=== PATIENT | male | born 1980 | race Two or more races ===

== ENCOUNTER 2024-07-07 19:22 | Emergency (ER) | payer SELFPAY ==
[2024-07-07 19:23] VITALS: BMI 39.4
--- NOTE | 2024-07-07 20:51 | PD.EDURI ---
Upper Respiratory Inf. RME/HPI General Chief Complaint: Flu Like Symptoms Stated Complaint: SORE THROAT Time Seen by Provider: 07/07/24 20:49 Arrival date/time: 07/07/24 19:22 RME / HPI RME / HPI Narrative: 44-year-old male patient came in for evaluation regarding flulike symptoms since yesterday, associated with nasal congestion sore throat, nonproductive cough body aches, headache, low-grade fever. Denies any abdominal pain denies any other complaints. No medications taken prior travel. Related Data Previous Rx's ?Medication ?Instructions ?Recorded amoxicillin 875 mg-potassium 1 tab PO BID #14 tabs 07/07/24 clavulanate 125 mg tablet ibuprofen 800 mg tablet 800 mg PO Q8H PRN pain #30 tabs 07/07/24 Allergies Allergy/AdvReac Type Severity Reaction Status Date / Time NKA* Allergy Uncoded 10/13/12 11:20 Review of Systems Review of Systems Narrative Review of Systems: My ROS ED Exam Narrative Physical exam: VITAL SIGNS: Reviewed. GENERAL APPEARANCE: Alert and interactive, follows commands, no acute distress, HEAD AND FACE: Non-traumatic. ENT: PERRL, pink conjunctivitis, eyelid no trauma, Mucous membrane moist. NECK: Supple, nontender, no nuchal rigidity. CHEST: No tenderness, no crepitus, no paradoxical movement, no retractions. LUNGS: Clear, well ventilated, symmetric, no rales, no wheezing, no ronchi, no stridor, good breath sounds bilaterally. HEART: Regular rate, regular rhythm, no murmur, no gallops. ABDOMEN: Soft, positive bowel sounds, nondistended, no guarding, nontender, no rebound, no masses, RECTAL: Deferred. GENITAL: Deferred. NEUROLOGICAL: Gross motor function intact sensory function intact, Appropriate for age. MUSCULOSKELETAL: low back nontender, full range of motion. EXTREMITIES: Nontender, full range of motion. SKIN: Color pink, dry, no rash, no lacerations, no abrasions, no contusions. LYMPHATICS: Deferred. Course Quality Measures none Orders Category Date Time Status Bedside COVID-19 Antigen Test NOW Care 07/07/24 20:51 Active Bedside Influenza A&B Antigen Test NOW Care 07/07/24 20:51 Completed Strep A Rapid Stat Lab 07/07/24 21:10 Completed Amoxicillin/Pot Clav 875 [Augmentin 875] Med 07/07/24 21:35 Discontinued 1 tab PO X1 ONE DiphenhydrAMINE [Benadryl] Med 07/07/24 20:51 Discontinued 50 mg PO X1 ONE Ibuprofen Tab [Motrin Tab] Med 07/07/24 20:51 Discontinued 800 mg PO X1 ONE Vital Signs Vital signs: Vital Signs Temperature 99.4 F 07/07/24 21:18 Pulse Rate 100 07/07/24 21:18 Respiratory Rate 18 07/07/24 21:18 Blood Pressure 119/75 07/07/24 21:18 Pulse Oximetry (%) 99 07/07/24 21:18 Oxygen Delivery Method Room Air 07/07/24 21:18 Upper Respiratory Infection MDM Narrative MDM Narrative:: Patient tested positive for strep. Negative for influenza and COVID Patient was given Augmentin Benadryl and Motrin patient stable to discharge home. Patient data External records reviewed:: None Clinical information provided by:: patient Social determinants that could affect healthcare access:: none Patient has the following chronic illnesses:: None How is presenting disease/condition affected by chronic disease/condition?: no chronic disease Evaluation data The following diagnostics were reviewed and interpreted by me:: lab results Lab and/or radiology exams considered but not ordered:: None Interpretation Summary: See results in MDM Medications / Prescriptions Medications or Prescriptions considered but not ordered:: None Medication administrations:: Medication Administration History Discontinued Medications Amoxicillin/Clavulanate Potassium (Amoxicillin/Pot Clav 875 Tablet) 1 tab PO X1 ONE Stop: 07/07/24 21:36 Last Admin: 07/07/24 21:46 Dose: 1 tab Documented By: FLORENCIO Diphenhydramine HCl (Diphenhydramine 25 Mg Capsule) 50 mg PO X1 ONE Stop: 07/07/24 20:52 Last Admin: 07/07/24 21:01 Dose: 50 mg Documented By: FLORENCIO Ibuprofen (Ibuprofen Tab 400 Mg Tablet) 800 mg PO X1 ONE Stop: 07/07/24 20:52 Last Admin: 07/07/24 21:01 Dose: 800 mg Documented By: FLORENCIO Benadryjanessa Motrin and Augmentin Consultations Consultation(s) initiated? (list below): No Diagnosis Upper Respiratory Differential Diagnosis: upper respiratory infection, viral infection and other (Strep throat) Most likely diagnosis given after review of the tests above:: Strep throat Admission Indicated Admission indicated?: not indicated Admission Request Was there a request for admission?: No Disposition Plan Disposition Plan: Discharge Discharge Attestation Discharge Attestation: The patient was given an opportunity to ask questions and understood the discharge instructions. Discharge instructions specifically effects, indications for sooner follow up or return to the emergency department, and the expected course of current diagnosis. Patient condition: Stable Discharge Plan Plan Patient Disposition: HOME (Self Care) Disposition Comment: Stable Prescriptions/Referrals Prescriptions/Med Rec: New amoxicillin-pot clavulanate 875-125 mg tablet 1 tab PO BID Qty: 14 0RF ibuprofen 800 mg tablet 800 mg PO Q8H PRN (Reason: pain) Qty: 30 0RF Referrals: No Primary/Family,Physician [Primary Care Provider] - In 1 week Problem List Clinical Impression: Strep throat Patient/Caregiver Discharge Instructions Discharge Activity: activity as tolerated Education Materials: ED Pharyngitis, Strep (Confirmed) Additional Instructions: Thank you for the opportunity for serving you today. You are stable for discharged . You are advised to: Follow-up with your PCP in 1 to 2 days Return to ED for worsening of symptoms Increase oral fluids Take medication as prescribed Print Language: Brazilian Stand Alone Forms: [facility] Award Info., Patient Portal Info Letter
[2024-07-07] MEDS: IBUPROFEN TAB 400 MG TABLET 800 MG PO (21:01)
[2024-07-07] MEDS: DiphenhydrAMINE 25 MG CAPSULE 50 MG PO (21:01)
[2024-07-07 21:18] VITALS: BP 119/75; PULSE 100; RESP 18; TEMP 37.4; O2SAT 99
[2024-07-07 21:30] LABS: Strep A Rapid Positive (Negative)
[2024-07-07] MEDS: AMOXICILLIN/POT CLAV 875 TABLET 1 TAB PO (21:46)
== END 2024-07-07 21:51 | disposition home or self-care (01) ==
PROVIDERS: Nurse Practitioner Family; Emergency Provider Emergency Medicine
DX: J02.0 Streptococcal pharyngitis (principal)
CPT/HCPCS: 87400; 87651; 87811; 99283; A9270

== ENCOUNTER → 2024-09-08 | Outpatient (CLI) | payer BC, SELFPAY ==
[2024-09-08 08:38] LABS: Basophils % (Auto) 0 % (0-2.5); Eosinophils # (Auto) 0.2 Thou/mm3 (0.0-0.5); Eosinophils % (Auto) 3 % (0-10); Hematocrit 44.9 % (41.0-53.0); Hemoglobin 16.2 g/dL (13.5-16.0); Immature Granulocytes % (Auto) 0 % (0-0); Immature Granulocytes Auto 0.02 Thou/mm3 (0.00-0.00); Lymphocytes # (Auto) 1.4 Thou/mm3 (1.0-4.8); Lymphocytes % (Auto) 20 % (10-50); Mean Corpuscular HGB Conc 36.1 g/dl (31.0-37.0); Mean Corpuscular Hemoglobin 33.8 pg (25.0-35.0); Mean Corpuscular Volume 94 fL (80-100); Monocytes # (Auto) 0.9 Thou/mm3 (0.0-0.8); Monocytes % (Auto) 14 % (0-12); Neutrophils # (Auto) 4.4 Thou/mm3 (1.8-7.7); Neutrophils % (Auto) 63 % (37-80); Nucleated Red Blood Cell % 0 /100 WBC (0); Platelet Count 170 Thou/mm3 (140-440); RDW Standard Deviation 46.9 fL (35.1-43.9); Red Blood Count 4.79 Miln/mm3 (4.50-5.90); White Blood Count 6.9 Thou/mm3 (3.8-10.6)
[2024-09-08 08:49] LABS: Glucose Estimated Average 117 mg/dL (80-131); Hemoglobin A1C 5.7 % Hgb (4.8-6.0)
[2024-09-08 09:20] LABS: Alanine Aminotransferase 104 U/L (10-49); Albumin, Serum 4.5 gm/dL (3.5-5.0); Albumin/Globulin Ratio 1.6 (1.2-2.2); Alkaline Phosphatase 110 U/L (46-116); Anion Gap 13 (7-16); Aspartate Amino Transferase 53 U/L (0-34); BUN/Creatinine Ratio 16 Ratio (12-20); Bilirubin,Total 1.2 mg/dL (0.3-1.2); Blood Urea Nitrogen 16 mg/dL (9-23); Carbon Dioxide 21.3 mMol/L (20.0-31.0); Cardiac Risk Estimate 7.5 RATIO (4.0-6.7); Chloride 106 mMol/L (98-107); Cholesterol 224 mg/dL (132-200); Globulin 2.8 gm/dL (2.3-3.5); Glucose 191 mg/dL (74-106); HDL Cholesterol 30 mg/dL (40-60); Osmolality,Calculated 285 (275-295); Sodium 140 mMol/L (136-145); Syphilis Nonreactive (Nonreactive); Thyroid Stimulating Hormone 3.04 uIU/mL (0.55-4.78); Total Protein 7.3 gm/dL (5.7-8.2); Triglycerides 639 mg/dL (30-150); eGFR > 60 See Note
[2024-09-08 09:48] LABS: Hepatitis A Antibody IgM Non Reactive (Non React); Hepatitis B Core Antibody IgM Non Reactive (Non React); Hepatitis B Surface Antigen Non Reactive (Non React); Hepatitis C Antibody Non Reactive (Non React)
[2024-09-08 11:55] LABS: Chlamydia trachomatis PCR Negative (Not Detect); Neisseria Gonorrhoeae DNA PCR Negative (Not Detect); Trichomonas Negative (Negative)
[2024-09-12 07:36] LABS: HIV Ag/Ab, 4th Gen NON-REACTIVE
[2024-09-12 13:49] LABS: A. alternata (M6) IgE <0.10 kU/L; A. fumigatus (M3) Class 0; A. fumigatus (M3) IgE <0.10 kU/L; Alder (T2) Class 2; Alder (T2) IgE 1.12 kU/L; Bermuda Grass (G2) Class 3; Bermuda Grass (G2) IgE 4.97 kU/L; Birch (T3) Class 2; Birch (T3) IgE 1.16 kU/L; C. herbarum (M2) Class 0; C. herbarum (M2) IgE <0.10 kU/L; Cat Dander (e1) Class 3; Cat Dander (e1) IgE 6.98 kU/L; Cockroach (I6) IgE 0.87 kU/L; Common Pigweed (W14) IgE 1.35 kU/L; Common Ragweed (W1) Class 2; Common Ragweed (W1) IgE 1.26 kU/L; D. farinae (D2) Class 3; D. farinae (D2) IgE 3.92 kU/L; D. pteronyssinus (D1) Class 3; D. pteronyssinus (D1) IgE 10.3 kU/L; Dog Dander (E5) IgE 2.66 kU/L; Elm (T8) IgE 1.36 kU/L; Mountain Cedar (T6) Class 2; Mountain Cedar (T6) IgE 1.85 kU/L; Mouse Ur Prot (E72) IgE <0.10 kU/L; Mugwort (W6) Class 2; Mugwort (W6) IgE 1.04 kU/L; Oak White (T7) Class 2; Oak White (T7) IgE 1.11 kU/L; Olive Tree (T9) Class 2; Olive Tree (T9) IgE 1.16 kU/L; P. notatum (M1) Class 0; P. notatum (M1) IgE <0.10 kU/L; Russian Thistle (W11) Class 2; Russian Thistle (W11) IgE 1.34 kU/L; Sycamore (T11) IgE 1.19 kU/L; Timothy Grass (G6) IgE 6.49 kU/L; White Mulberry (T70) IgE 0.97 kU/L
[2024-09-13 06:34] LABS: A. alternata (M6) Class 0; Cockroach (I6) Class 2; Common Pigweed (W14) Class 2; Dog Dander (E5) Class 2; Elm (T8) Class 2; IgE, Total, Serum 121 kU/L (114 OR LESS); Mouse Ur Prot (E72) Class 0; Sycamore (T11) Class 2; Timothy Grass (G6) Class 3; White Mulberry (T70) Class 2
== END | disposition home or self-care (01) ==
PROVIDERS: PCP Nurse Practitioner Family; Referring Provider Nurse Practitioner Family; Visit Provider Nurse Practitioner Family
DX: Z11.3 Encounter for screening for infections with a predominantly sexual mode of transmission (principal); Z76.89 Persons encountering health services in other specified circumstances; Z88.9 Allergy status to unspecified drugs, medicaments and biological substances
CPT/HCPCS: 36415; 80053; 80061; 80074; 82785; 83036; 84443; 85025; 86003; 86780; 87389; 87491; 87591; 87661